=== PATIENT | female | born 1980 | race African-American/Black ===

== ENCOUNTER 2019-01-31 07:18 | Emergency (ER) | payer MEDICAID ==
[~2019-01-31] VITALS: Ht 162.6 cm; Wt 141.1 kg
[2019-01-31 07:21] VITALS: BP 143/74
[2019-01-31] MEDS ORDERED: KETOROLAC TROMETH 60MG/2ML VIAL IM ONE (07:45)
== END 2019-01-31 08:10 | disposition home or self-care (01) ==
LOC: ER 07:18
DX: M54.42 Lumbago with sciatica, left side (principal); F17.210 Nicotine dependence, cigarettes, uncomplicated; F12.10 Cannabis abuse, uncomplicated
CPT/HCPCS: 81002; 81025; 96372; 99283; J1885